=== PATIENT | female | born 2000 | race Caucasian/White ===

== ENCOUNTER 2019-12-07 05:43 | Emergency (ER) | payer OTHER ==
[2019-12-07] MEDS ORDERED: Ketorolac Tromethamine 30 MG/ML VIAL ONE (06:11)
[2019-12-07 06:49] LABS: Pregnancy Test - Urine (BHCG) Negative (Negative); Pregu Control Background? CLEAR/WHITE (CLR/WHITE); Pregu Control Bar Appear? YES (CONTROL BAR); Specific Gravity 1.027 (1.002-1.036)
--- NOTE | 2019-12-07 12:41 | RAD ---
PA AND LATERAL VIEWS CHEST: HISTORY: Chest pain and shortness of breath. FINDINGS: The cardiomediastinum is normal. The lungs are clear. The bony thorax is unremarkable. IMPRESSION: Normal exam. POS: [facility]
--- NOTE | 2019-12-11 12:50 | EKG ---
Test Reason : CP Blood Pressure : / mmHG Vent. Rate : 075 BPM Atrial Rate : 075 BPM P-R Int : 100 ms QRS Dur : 084 ms QT Int : 418 ms P-R-T Axes : 018 042 043 degrees QTc Int : 466 ms Sinus rhythm with short MD Otherwise normal ECG Confirmed by COBY BERGER DO ([id number]), desk editor COURTNEY CLEMENTS ([id number] on 12/11/2019 12:50:05 PM Referred By: Confirmed By:COBY BERGER DO
== END 2019-12-07 07:18 | disposition home or self-care (01) ==
LOC: ERS 05:43
DX: R07.2 Precordial pain (principal); R06.02 Shortness of breath; F41.9 Anxiety disorder, unspecified; Z79.899 Other long term (current) drug therapy
CPT/HCPCS: 71046; 81025; 93005; 96372; J1885